=== PATIENT | female | born 1965 | race Caucasian/White ===

== ENCOUNTER 2017-01-11 07:13 | Day surgery (SDC) | payer BC ==
[2017-01-09 17:49] LABS: HEMATOCRIT 45.2 % (36.0-48.0); HEMOGLOBIN 15.9 g/dL (12.0-16.0)
[2017-01-09 18:07] LABS: A/G RATIO 1.3 (0.7-1.9); ALBUMIN 4.3 G/DL (3.5-5.0); ALKALINE PHOSPHATASE 82 U/L (45-117); BUN (BLOOD UREA NITROGEN) 6 MG/DL (6-23); CALCIUM, SERUM 9.8 MG/DL (8.5-10.4); CHLORIDE, SERUM 93 MMOL/L (96-112); CO2 (CARBON DIOXIDE) 28 MMOL/L (24-34); CREATININE 0.54 MG/DL (0.55-1.02); GFR AFRICAN AMERICAN 126 ML/MIN (>=60); GFR NON AFRICAN AMERICAN 108 ML/MIN (>=60); POTASSIUM, SERUM 3.8 MMOL/L (3.5-5.3); SGOT(AST) 20 U/L (5-40); SGPT(ALT) 36 U/L (5-65); SODIUM, SERUM 131 MMOL/L (135-148); TOTAL BILIRUBIN 0.3 MG/DL (0-1.2); TOTAL PROTEIN 7.7 G/DL (6.0-8.5)
[2017-01-09 18:09] LABS: GLOBULIN 3.4 G/DL (2.5-4.1); GLUCOSE, SERUM 154 MG/DL (60-99)
[~2017-01-11] VITALS: Ht 160 cm; Wt 64.2 kg
--- NOTE | ~2017-01-11 | OP ---
Record Of Operation [facility] [address] [place]. [address] NAME: ILIANA WAGGONER : 63 STATUS : [facility] UNIT#: [id number] AGE: 51 ADM/REG DATE : 01/11/17 MR#: [id number] REPORT SERV DATE: 01/11/17 DICTATED BY: MATTHEW SILVA DATE: 01/11/17 REPORT STATUS : Draft TRANSCRIBED BY: MODL DATE: 01/11/17 DATE OF PROCEDURE: 01/11/2017 PREOPERATIVE DIAGNOSES: 1. Symptomatic biliary dyskinesia with chronic cholecystitis. 2. Hypertension. 3. Diabetes mellitus type 2. 4. Hypothyroidism. POSTOPERATIVE DIAGNOSES: 1. Symptomatic biliary dyskinesia with chronic cholecystitis. 2. Hypertension. 3. Diabetes mellitus type 2. 4. Hypothyroidism. PROCEDURE: Laparoscopic cholecystectomy. ANESTHESIA: General. PACKAGE SEALER: Ines. COMPLICATIONS: None. DRAINS: None. ESTIMATED BLOOD LOSS: 10 mL. FINDINGS: 1. The patient was noted to have normal preoperative liver function studies and no evidence of any intraoperative cystic duct or common duct dilatation with chronic gallbladder wall thickening consistent with chronic cholecystitis. 2. No cholangiogram was obtained secondary to preoperative liver functions being normal with no ductal dilatation. OPERATIVE TECHNIQUE: The patient was brought to the operating room and placed on the table in supine position. She had preoperative IV antibiotics. She had sequential hose in place. She underwent general endotracheal anesthesia and was prepped and draped in sterile fashion, and a time-out was completed. Local anesthesia was instilled to the periumbilical skin, and a 15 blade knife was used to make incision through the base umbilicus. The skin and fascia were elevated and a Veress needle was inserted and water drop test safely performed. An 11 mm trocar was inserted through the umbilicus followed by the laparoscope. There was no evidence of Veress or trocar injury. The patient was then placed in reverse Trendelenburg and rolled to the left. An 11 mm subxiphoid and two 5 mm right upper quadrant trocars were placed under direct visualization. The gallbladder fundus was grasped and elevated over the liver edge as the infundibulum was retracted inferolaterally. The patient was noted to have some loose adhesions of the omentum to the gallbladder. These were taken down using blunt Record Of Operation [facility] [address] [place] [address] NAME: ILIANA WAGGONER : 63 STATUS : [facility] UNIT#: [id number] AGE: 51 ADM/REG DATE : 01/11/17 MR#: [id number] REPORT SERV DATE: 01/11/17 DICTATED BY: MATTHEW SILVA DATE: 01/11/17 REPORT STATUS : Draft TRANSCRIBED BY: MODL DATE: 01/11/17 dissection and electrocautery hook until the infundibulum was retracted inferolaterally. At this point, the cystic duct gallbladder junction was identified. It was dissected circumferentially with a [place] dissector until it was seen in 360-degree fashion. Dissection more medial revealed the cystic arterial branches anteriorly and posteriorly. They were circumferentially dissected until they were seen in 360-degree fashion. At this point, two clips were placed proximally and distally on the cystic duct and anterior cystic artery and they were divided between the clips. The posterior artery was further dissected and clipped on the hepatic fossa with two clips and cauterized distally. The gallbladder was then removed from the fossa using electrocautery hook and extracted through the umbilicus. The laparoscope and trocar were reinserted. Examination of hepatic fossa noted to be hemostatic. The clips were noted to be intact without encroachment of common bile duct. There was no evidence of any bleeding, biliary spillage, or other visual abnormalities. At this point, all the instruments and trocars removed under direct visualization as the pneumoperitoneum was aspirated. The umbilical fascia was reapproximated using a [id number] Vicryl suture. The skin edges were reapproximated using absorbable subcuticular Monocryl sutures. Dermabond was applied. She was extubated and taken to recovery room in stable condition. All sponge and needle counts reported correct. /SUZANNE Matthew Silva M.D. / [id number] CC: Peyton Marie M.D.
[~2017-01-11 07:13] MED LIST: AMARYL4 PO; ASAB PO; BEN25 PO; CELEBREX2 PO; ESTRACE0.5 MG PO; GLUCPH PO; HYDROCHLOROT25 MG PO; LOTE40 PO; MULTIVIT/MIN PO; NORV5 PO; PVC V; SYN.15 PO
== END 2017-01-11 13:24 | disposition home or self-care (01) ==
LOC: SDC 07:13
PROVIDERS: Surgery
PROC: 0FT44ZZ Resection of Gallbladder, Percutaneous Endoscopic Approach (ICD-10-PCS; principal; 2017-01-11 09:00)
DX: K82.4 Cholesterolosis of gallbladder (principal); I10 Essential (primary) hypertension; E11.9 Type 2 diabetes mellitus without complications; E78.5 Hyperlipidemia, unspecified; E03.9 Hypothyroidism, unspecified; D64.9 Anemia, unspecified; Z88.2 Allergy status to sulfonamides; Z88.5 Allergy status to narcotic agent; Z88.8 Allergy status to other drugs, medicaments and biological substances; Z79.899 Other long term (current) drug therapy; Z91.040 Latex allergy status; Z90.710 Acquired absence of both cervix and uterus; Z98.890 Other specified postprocedural states
CPT/HCPCS: 76000; 80053; 82962; 85014; 85018; 88304; 93005; J0690; J1885; J2250; J2270; J2405; J2710; J2795; J3010